=== PATIENT | male | born 1940 | race Caucasian/White ===

== ENCOUNTER → 2020-05-28 | Outpatient (CLI) | payer MEDICARE, BC ==
[~2020-05-28] MED LIST: ASPI81CH PO; Ipratropium Bro15 ML; METO25ER PO
== END | disposition home or self-care (01) ==
LOC: PLD 09:00 → LAB SHORT 09:00
DX: L82.1 Other seborrheic keratosis (principal)
CPT/HCPCS: 88305

== ENCOUNTER 2022-02-25 10:37 | Day surgery (SDC) | payer MEDICARE, BC ==
[~2022-02-25] VITALS: Ht 188 cm; Wt 92.6 kg
== END 2022-02-25 14:11 | disposition home or self-care (01) ==
LOC: ORSCSDS 10:37
PROVIDERS: Internal Medicine Gastroenterology
PROC: 0DBP8ZX Excision of Rectum, Via Natural or Artificial Opening Endoscopic, Diagnostic (ICD-10-PCS; principal; 2022-02-25 12:00)
DX: Z12.11 Encounter for screening for malignant neoplasm of colon (principal); Z86.010 Personal history of colon polyps; K62.1 Rectal polyp; K64.4 Residual hemorrhoidal skin tags; E78.5 Hyperlipidemia, unspecified; Z79.899 Other long term (current) drug therapy
CPT/HCPCS: 88305; J0330; J0461; J2405; J2704; J7120

== ENCOUNTER → 2022-03-01 | Outpatient (CLI) | payer MEDICARE, BC | LOC: LAB 08:27 → PLD 08:27 → LAB SHORT 08:27 | DX: L57.0 Actinic keratosis (principal); B88.0 Other acariasis; D48.5 Neoplasm of uncertain behavior of skin | CPT/HCPCS: 88305 ==

== ENCOUNTER → 2022-05-01 | Outpatient (CLI) | payer MEDICARE, BC ==
[2022-05-01 14:48] LABS: BASOPHILS ABSOLUTE AUTO 0.01 K/mm3 (0.00-0.23); BASOPHILS PERCENT AUTO 0 % (0-2); EOSINOPHILS ABSOLUTE AUTO 0.11 K/mm3 (0.00-0.68); EOSINOPHILS PERCENT AUTO 5 % (0-6); Hematocrit 36.1 % (37.0-53.0); Hemoglobin 12.6 g/dL (13.5-17.5); Mean Corpuscular HGB Conc 34.9 g/dL (31.5-36.5); Mean Corpuscular Volume 106 fL (80-100); Mean Platelet Volume 8.7 fL (9.1-12.4); Platelet Count 183 K/mm3 (150-400); RDW Coefficient Variation 13.5 % (11.7-14.2); RDW Standard Deviation 51.8 fL (35.1-46.3); Red Blood Cell Count 3.41 M/mm3 (4.30-5.90); White Blood Cell Count 2.35 K/mm3 (4.00-11.30)
[2022-05-01 14:57] LABS: Albumin, Blood 4.2 g/dL (3.4-5.0); Albumin/Globulin Ratio 1.4 (0.8-1.8); Bilirubin, Total 0.5 mg/dL (0.1-1.0); Bun/Creatinine Ratio 13.5 (12.0-20.0); Calcium, Blood 8.7 mg/dL (8.5-10.1); Creatinine, Blood 1.11 mg/dL (0.60-1.20); Potassium, Blood 4.7 mmol/L (3.5-5.5); Total Protein, Blood 7.2 g/dL (6.4-8.2)
[2022-05-01 15:06] LABS: IMMATURE GRAN PERCENT AUTO 0 % (0-1); LYMPHOCYTES ABSOLUTE AUTO 1.42 K/mm3 (0.84-5.20); LYMPHOCYTES PERCENT AUTO 60 % (21-46); MONOCYTES ABSOLUTE AUTO 0.08 K/mm3 (0.16-1.47); MONOCYTES PERCENT AUTO 3 % (4-13); NEUTROPHILS ABSOLUTE AUTO 0.73 K/mm3 (1.96-9.15); NEUTROPHILS PERCENT AUTO 31 % (41-73)
[2022-05-01 15:43] LABS: International Normalized Ratio 0.98; Prothrombin Time Results 10.3 Sec (9.7-11.5)
== END ==
LOC: LAB SHORT 14:43
PROVIDERS: General Practice
DX: S81.801A Unspecified open wound, right lower leg, initial encounter (principal); D53.9 Nutritional anemia, unspecified
CPT/HCPCS: 80053; 83010; 85025; 85610

== ENCOUNTER 2022-10-08 00:01 | Day surgery (SDC) | payer MEDICARE, BC ==
[2022-10-06 10:19] LABS: Hemoglobin 9.1 g/dL (13.5-17.5); Mean Corpuscular HGB 38.1 pg (26.0-34.0); Mean Corpuscular Volume 109 fL (80-100); Mean Platelet Volume 9.7 fL (9.1-12.4); Platelet Count 109 K/mm3 (150-400); RDW Coefficient Variation 13.2 % (11.7-14.2); RDW Standard Deviation 52.1 fL (35.1-46.3); Red Blood Cell Count 2.39 M/mm3 (4.30-5.90)
[2022-10-08] MEDS ORDERED: ACYCLOVIR400 MG PO (14:57)
[2022-10-08] MEDS ORDERED: Amoxicillin500 MG PO (14:57)
[2022-10-08] MEDS ORDERED: TEMOVATE15 G1 TOP (14:58)
[2022-10-08] MEDS ORDERED: Diflucan100 MG PO (14:59)
[2022-10-08] MEDS ORDERED: LEVO750 PO (14:59)
== END 2022-10-08 17:23 | disposition home or self-care (01) ==
LOC: ATC 00:01 → LAB FUT 05-01 09:05 → EDSTATUS 05-01 09:05 → ATC 05-01 09:05
PROVIDERS: Internal Medicine Hematology & Oncology
DX: D46.22 Refractory anemia with excess of blasts 2 (principal)
CPT/HCPCS: 36415; 36430; 85027; 86850; 86900; 86901; 86920; J7040; P9016

== ENCOUNTER 2022-11-10 06:28 | Day surgery (SDC) | payer MEDICARE, BC ==
[~2022-11-10] VITALS: Ht 188 cm; Wt 94.9 kg
[~2022-11-10 06:28] MED LIST changes: +ACYCLOVIR400 MG PO; +Amoxicillin500 MG PO; +Diflucan100 MG PO; +LEVO750 PO; +TEMOVATE15 G1 TOP
--- NOTE | 2022-11-10 07:28 | NUR ---
Ambulatory in [facility] warming gown applied. Surgical site prepped with 2% Chlorhexidine cloth wipe. History, Chart, Medications and Allergies reviewed before start of procedure.Lungs clear T/O to Auscultation. Patient confirms NPO status and agrees with scheduled surgery. Patient confirms NPO status and agrees with scheduled surgery. Pre-Op teaching done. Pt verbalizes understanding. Patient States Post-Procedure ride home has been arranged. Patient reports completing Chlorhexadine shower X2 prior to admission to hospital.
--- NOTE | 2022-11-10 10:12 | NUR ---
SMALL SWELLING NOTED TO R NECK BELOW INCISION, APPROX GOLF BALL SIZED IN DIAMETER AND FAIRLY FLAT. NO CHANGES IN SIZE NOTED DURING OBSERVATION OF PATIENT IN DAY SURGERY. CALL OUT TO DR RIVERO [place] PER MD TO DISCHARGE. [facility] ACC[facility]ED PER MD ORDERS. NO OTHER CONCERNS. VSS, NO C/O PAIN OR NAUSEA. TOLERATED PO FLUIDS. MEDIPORT AND SURGICAL INCISION CDI. PT DISCHARGED TO HOME IN PRIVATE VEHICLE. DISCHARGE INSTRUCTIONS GIVEN AND ALL QUESTIONS ANSWERED.
== END 2022-11-10 10:10 | disposition home or self-care (01) ==
LOC: ORSCMMR 06:28 → ORD 08:00 → ORSCMMR 10:10
PROVIDERS: Surgery
PROC: 0JH60WZ Insertion of Totally Implantable Vascular Access Device into Chest Subcutaneous Tissue and Fascia, Open Approach (ICD-10-PCS; principal; 2022-11-10 08:00)
PROC: 05HM33Z Insertion of Infusion Device into Right Internal Jugular Vein, Percutaneous Approach (ICD-10-PCS; principal; 2022-11-10 08:00)
PROC: B543ZZA Ultrasonography of Right Jugular Veins, Guidance (ICD-10-PCS; principal; 2022-11-10 08:00)
DX: D46.22 Refractory anemia with excess of blasts 2 (principal); I10 Essential (primary) hypertension; Z79.899 Other long term (current) drug therapy
CPT/HCPCS: 77001; C1788; J0690; J1642; J2250; J2704; J2795; J3010; J7120

== ENCOUNTER 2022-11-17 10:13 | Day surgery (SDC) | payer MEDICARE, BC ==
[2022-11-16 15:54] LABS: Hematocrit 20.4 % (37.0-53.0); Mean Corpuscular HGB 37.2 pg (26.0-34.0); Mean Corpuscular HGB Conc 34.3 g/dL (31.5-36.5); Mean Corpuscular Volume 109 fL (80-100); Mean Platelet Volume 9.1 fL (9.1-12.4); Platelet Count 120 K/mm3 (150-400); RDW Coefficient Variation 16.8 % (11.7-14.2); RDW Standard Deviation 66.2 fL (35.1-46.3); Red Blood Cell Count 1.88 M/mm3 (4.30-5.90); White Blood Cell Count 1.79 K/mm3 (4.00-11.30)
== END 2022-11-17 15:50 | disposition home or self-care (01) ==
LOC: ATC 10:13 → LAB FUT 11-16 11:35 → EDSTATUS 11-16 11:35
PROVIDERS: Internal Medicine Hematology & Oncology
DX: D46.22 Refractory anemia with excess of blasts 2 (principal); D70.9 Neutropenia, unspecified; E78.5 Hyperlipidemia, unspecified; Z79.899 Other long term (current) drug therapy; Z88.0 Allergy status to penicillin
CPT/HCPCS: 36415; 36430; 85027; 86850; 86900; 86901; 86923; J1642; J7040; P9016

== ENCOUNTER 2022-12-28 07:50 | Day surgery (SDC) | payer MEDICARE, BC ==
[2022-12-27 09:42] LABS: BASOPHILS PERCENT AUTO 0 % (0-2); EOSINOPHILS PERCENT AUTO 0 % (0-6); Hematocrit 18.6 % (37.0-53.0); Hemoglobin 6.4 g/dL (13.5-17.5); Mean Corpuscular HGB 38.3 pg (26.0-34.0); Mean Corpuscular HGB Conc 34.4 g/dL (31.5-36.5); Mean Corpuscular Volume 111 fL (80-100); Mean Platelet Volume 9.4 fL (9.1-12.4); Platelet Count 183 K/mm3 (150-400); RDW Coefficient Variation 23.6 % (11.7-14.2); RDW Standard Deviation 94.2 fL (35.1-46.3); Red Blood Cell Count 1.67 M/mm3 (4.30-5.90); White Blood Cell Count 1.25 K/mm3 (4.00-11.30)
[2022-12-27 09:46] LABS: IMMATURE GRAN PERCENT AUTO 0 % (0-1); LYMPHOCYTES ABSOLUTE AUTO 1.17 K/mm3 (0.84-5.20); LYMPHOCYTES PERCENT AUTO 94 % (21-46); MONOCYTES ABSOLUTE AUTO 0.04 K/mm3 (0.16-1.47); MONOCYTES PERCENT AUTO 3 % (4-13); NEUTROPHILS ABSOLUTE AUTO 0.04 K/mm3 (1.96-9.15); NEUTROPHILS PERCENT AUTO 3 % (41-73)
--- NOTE | 2022-12-28 12:16 | NUR ---
LUNG SOUNDS IN RLL ARE COARSE.
== END 2022-12-28 12:25 | disposition home or self-care (01) ==
LOC: ATC 07:50 → EDSTATUS 08:00 → ATC 12:25
PROVIDERS: Internal Medicine Hematology & Oncology
DX: D46.22 Refractory anemia with excess of blasts 2 (principal); Z79.899 Other long term (current) drug therapy; Z88.0 Allergy status to penicillin
CPT/HCPCS: 36415; 36430; 85025; 86850; 86900; 86901; 86923; J1642; J7050; P9016

== ENCOUNTER 2023-02-08 02:31 | Day surgery (SDC) | payer MEDICARE, BC ==
[2023-02-07 10:32] LABS: BASOPHILS PERCENT AUTO 0 % (0-2); EOSINOPHILS ABSOLUTE AUTO 0.01 K/mm3 (0.00-0.68); EOSINOPHILS PERCENT AUTO 1 % (0-6); Hematocrit 19.9 % (37.0-53.0); Hemoglobin 6.7 g/dL (13.5-17.5); IMMATURE GRAN ABSOLUTE AUTO 0.01 K/mm3 (0.00-0.10); IMMATURE GRAN PERCENT AUTO 1 % (0-1); LYMPHOCYTES ABSOLUTE AUTO 1.47 K/mm3 (0.84-5.20); LYMPHOCYTES PERCENT AUTO 94 % (21-46); MONOCYTES ABSOLUTE AUTO 0.07 K/mm3 (0.16-1.47); MONOCYTES PERCENT AUTO 5 % (4-13); Mean Corpuscular HGB Conc 33.7 g/dL (31.5-36.5); Mean Corpuscular Volume 107 fL (80-100); Mean Platelet Volume 10.4 fL (9.1-12.4); NEUTROPHILS ABSOLUTE AUTO 0.01 K/mm3 (1.96-9.15); NEUTROPHILS PERCENT AUTO 1 % (41-73); Platelet Count 78 K/mm3 (150-400); RDW Coefficient Variation 21.4 % (11.7-14.2); RDW Standard Deviation 81.7 fL (35.1-46.3); Red Blood Cell Count 1.86 M/mm3 (4.30-5.90); White Blood Cell Count 1.57 K/mm3 (4.00-11.30)
[2023-02-08] MEDS ORDERED: METOPROLOL TART25 MG PO (08:09)
== END 2023-02-08 11:50 | disposition home or self-care (01) ==
LOC: ATC 02:31 → LAB FUT 02-03 14:35 → EDSTATUS 02-03 14:35
PROVIDERS: Internal Medicine Hematology & Oncology
DX: D46.22 Refractory anemia with excess of blasts 2 (principal)
CPT/HCPCS: 36415; 85025; 86850; 86900; 86901; 86923; J1642; J7050; P9016

== ENCOUNTER 2023-03-22 01:32 | Day surgery (SDC) | payer MEDICARE, BC ==
[2023-03-21 09:15] LABS: BASOPHILS PERCENT AUTO 0 % (0-2); EOSINOPHILS ABSOLUTE AUTO 0.01 K/mm3 (0.00-0.68); EOSINOPHILS PERCENT AUTO 1 % (0-6); Hemoglobin 6.4 g/dL (13.5-17.5); Mean Platelet Volume 10.7 fL (9.1-12.4); Platelet Count 79 K/mm3 (150-400); White Blood Cell Count 1.38 K/mm3 (4.00-11.30)
[2023-03-21 09:23] LABS: Hematocrit 18.5 % (37.0-53.0); Mean Corpuscular HGB 35.2 pg (26.0-34.0); Mean Corpuscular HGB Conc 34.6 g/dL (31.5-36.5); Mean Corpuscular Volume 102 fL (80-100); Red Blood Cell Count 1.82 M/mm3 (4.30-5.90)
[2023-03-21 09:24] LABS: IMMATURE GRAN PERCENT AUTO 0 % (0-1); LYMPHOCYTES ABSOLUTE AUTO 1.31 K/mm3 (0.84-5.20); LYMPHOCYTES PERCENT AUTO 95 % (21-46); MONOCYTES ABSOLUTE AUTO 0.03 K/mm3 (0.16-1.47); MONOCYTES PERCENT AUTO 2 % (4-13); NEUTROPHILS ABSOLUTE AUTO 0.03 K/mm3 (1.96-9.15); NEUTROPHILS PERCENT AUTO 2 % (41-73)
[~2023-03-22 01:32] MED LIST changes: +METOPROLOL TART25 MG PO
[2023-03-22 13:28] VITALS: BP 157/55
[2023-03-22 13:46] VITALS: BP 148/66
[2023-03-22 14:46] VITALS: BP 172/73
[2023-03-22 15:22] VITALS: BP 179/61
[2023-03-22 16:24] VITALS: BP 178/60
[2023-03-22 16:47] VITALS: BP 175/67
== END 2023-03-22 16:55 | disposition home or self-care (01) ==
LOC: ATC 01:32 → EDSTATUS 02-07 16:30 → LAB FUT 02-07 16:30
PROVIDERS: Internal Medicine Hematology & Oncology
DX: D46.22 Refractory anemia with excess of blasts 2 (principal); Z88.0 Allergy status to penicillin
CPT/HCPCS: 36415; 85025; 86850; 86900; 86901; 86923; J1642; J7050; P9016

== ENCOUNTER 2023-04-19 00:23 | Day surgery (SDC) | payer MEDICARE, BC ==
[2023-04-18 09:32] LABS: BASOPHILS PERCENT AUTO 0 % (0-2); EOSINOPHILS ABSOLUTE AUTO 0.01 K/mm3 (0.00-0.68); EOSINOPHILS PERCENT AUTO 1 % (0-6); Hematocrit 19.4 % (37.0-53.0); Hemoglobin 6.6 g/dL (13.5-17.5); Mean Corpuscular Volume 100 fL (80-100); Mean Platelet Volume 9.5 fL (9.1-12.4); Platelet Count 54 K/mm3 (150-400); RDW Coefficient Variation 21.2 % (11.7-14.2); RDW Standard Deviation 75.7 fL (35.1-46.3); Red Blood Cell Count 1.94 M/mm3 (4.30-5.90); White Blood Cell Count 1.29 K/mm3 (4.00-11.30)
[2023-04-18 09:42] LABS: IMMATURE GRAN PERCENT AUTO 0 % (0-1); LYMPHOCYTES ABSOLUTE AUTO 1.22 K/mm3 (0.84-5.20); LYMPHOCYTES PERCENT AUTO 95 % (21-46); MONOCYTES ABSOLUTE AUTO 0.05 K/mm3 (0.16-1.47); MONOCYTES PERCENT AUTO 4 % (4-13); NEUTROPHILS ABSOLUTE AUTO 0.01 K/mm3 (1.96-9.15); NEUTROPHILS PERCENT AUTO 1 % (41-73)
[2023-04-18 09:57] LABS: Albumin, Blood 2.8 g/dL (3.4-5.0); Albumin/Globulin Ratio 0.8 (0.8-1.8); Bilirubin, Total 0.3 mg/dL (0.1-1.0); Bun/Creatinine Ratio 24.8 (12.0-20.0); Calcium, Blood 8.6 mg/dL (8.5-10.1); Creatinine, Blood 1.13 mg/dL (0.60-1.20); Globulin, Blood 3.4 g/dL (2.2-4.0); Potassium, Blood 4.2 mmol/L (3.5-5.5); Total Protein, Blood 6.2 g/dL (6.4-8.2)
[2023-04-18 11:37] LABS: BASOPHILS PERCENT MAN 0 % (0-2); EOSINOPHILS PERCENT MAN 0 % (0-6); LYMPHOCYTES ABSOLUTE MAN 1.26 K/mm3 (0.84-5.20); LYMPHOCYTES PERCENT MAN 98 % (21-46); MONOCYTES ABSOLUTE MAN 0.02 K/mm3 (0.16-1.47); MONOCYTES PERCENT MAN 2 % (4-13); TOTAL CELLS COUNTED 100
[2023-04-19 13:49] VITALS: BP 126/50
[2023-04-19 14:07] VITALS: BP 107/48
[2023-04-19 15:26] VITALS: BP 138/50
[2023-04-19 15:52] VITALS: BP 140/57
== END 2023-04-19 17:09 | disposition home or self-care (01) ==
LOC: ATC 00:23
PROVIDERS: Internal Medicine Hematology & Oncology
DX: D46.22 Refractory anemia with excess of blasts 2 (principal); R53.83 Other fatigue; Z88.0 Allergy status to penicillin
CPT/HCPCS: 36415; 80053; 84443; 85025; 86850; 86900; 86901; 86923; J1642; J7050; P9016

== ENCOUNTER 2023-05-18 02:09 | Day surgery (SDC) | payer MEDICARE, BC ==
[2023-05-16 09:18] LABS: Hemoglobin 6.4 g/dL (13.5-17.5); Mean Corpuscular HGB Conc 33.7 g/dL (31.5-36.5); Mean Corpuscular Volume 98 fL (80-100); Mean Platelet Volume 9.5 fL (9.1-12.4); Platelet Count 129 K/mm3 (150-400); RDW Coefficient Variation 20.4 % (11.7-14.2); RDW Standard Deviation 68.5 fL (35.1-46.3); Red Blood Cell Count 1.94 M/mm3 (4.30-5.90); White Blood Cell Count 1.77 K/mm3 (4.00-11.30)
[2023-05-16 09:41] LABS: BASOPHILS PERCENT MAN 0 % (0-2); EOSINOPHILS PERCENT MAN 0 % (0-6); LYMPHOCYTES % ATYPICAL MANUAL 4 % (0-0); LYMPHOCYTES ABSOLUTE MAN 1.66 K/mm3 (0.84-5.20); LYMPHOCYTES PERCENT MAN 90 % (21-46); MONOCYTES PERCENT MAN 6 % (4-13); TOTAL CELLS COUNTED 50
[2023-05-16 13:56] LABS: SEG NEUTROPHILS PERCENT MAN 0 % (41-73)
[2023-05-18] VITALS (7 sets, daily range): BP systolic 112–160; BP diastolic 46–60
== END 2023-05-18 16:43 | disposition home or self-care (01) ==
LOC: ATC 02:09 → EDSTATUS 13:15 → ATC 16:43
PROVIDERS: Internal Medicine Hematology & Oncology
DX: D46.22 Refractory anemia with excess of blasts 2 (principal)
CPT/HCPCS: 36415; 85025; 86850; 86900; 86901; 86923; J1642; J7050; P9016

== ENCOUNTER 2023-06-01 01:55 | Day surgery (SDC) | payer MEDICARE, BC ==
[2023-05-30 09:30] LABS: BASOPHILS PERCENT AUTO 0 % (0-2); EOSINOPHILS PERCENT AUTO 0 % (0-6); Hematocrit 19.8 % (37.0-53.0); Hemoglobin 6.8 g/dL (13.5-17.5); Mean Corpuscular HGB 32.1 pg (26.0-34.0); Mean Corpuscular HGB Conc 34.3 g/dL (31.5-36.5); Mean Corpuscular Volume 93 fL (80-100); Mean Platelet Volume 9.9 fL (9.1-12.4); Platelet Count 56 K/mm3 (150-400); RDW Coefficient Variation 17.6 % (11.7-14.2); RDW Standard Deviation 55.5 fL (35.1-46.3); Red Blood Cell Count 2.12 M/mm3 (4.30-5.90); White Blood Cell Count 1.12 K/mm3 (4.00-11.30)
[2023-05-30 09:43] LABS: IMMATURE GRAN ABSOLUTE AUTO 0.01 K/mm3 (0.00-0.10); IMMATURE GRAN PERCENT AUTO 1 % (0-1); LYMPHOCYTES ABSOLUTE AUTO 1.01 K/mm3 (0.84-5.20); LYMPHOCYTES PERCENT AUTO 90 % (21-46); MONOCYTES ABSOLUTE AUTO 0.08 K/mm3 (0.16-1.47); MONOCYTES PERCENT AUTO 7 % (4-13); NEUTROPHILS ABSOLUTE AUTO 0.02 K/mm3 (1.96-9.15); NEUTROPHILS PERCENT AUTO 2 % (41-73)
[2023-06-01 13:54] VITALS: BP 168/66
[2023-06-01 14:16] VITALS: BP 139/58
[2023-06-01 15:13] VITALS: BP 151/61
[2023-06-01 15:24] VITALS: BP 153/69
[2023-06-01 15:48] VITALS: BP 150/63
[2023-06-01 17:08] VITALS: BP 166/62
== END 2023-06-01 17:16 | disposition home or self-care (01) ==
LOC: ATC 01:55
PROVIDERS: Internal Medicine Hematology & Oncology
DX: D46.22 Refractory anemia with excess of blasts 2 (principal); E78.5 Hyperlipidemia, unspecified; Z88.0 Allergy status to penicillin; Z79.899 Other long term (current) drug therapy
CPT/HCPCS: 36415; 36430; 85025; 86850; 86900; 86901; 86923; J1642; J7050; P9016

== ENCOUNTER 2023-06-29 01:18 | Day surgery (SDC) | payer MEDICARE, BC ==
[2023-06-27 15:04] LABS: Hematocrit 18.6 % (37.0-53.0); Hemoglobin 6.6 g/dL (13.5-17.5); Mean Corpuscular HGB 32.8 pg (26.0-34.0); Mean Corpuscular HGB Conc 35.5 g/dL (31.5-36.5); Mean Corpuscular Volume 93 fL (80-100); Mean Platelet Volume 9.4 fL (9.1-12.4); Platelet Count 108 K/mm3 (150-400); RDW Coefficient Variation 16.5 % (11.7-14.2); RDW Standard Deviation 50.3 fL (35.1-46.3); Red Blood Cell Count 2.01 M/mm3 (4.30-5.90); White Blood Cell Count 1.93 K/mm3 (4.00-11.30)
[2023-06-27 16:01] LABS: BASOPHILS PERCENT MAN 0 % (0-2); EOSINOPHILS ABSOLUTE MAN 0.03 K/mm3 (0.00-0.68); EOSINOPHILS PERCENT MAN 2 % (0-6); LYMPHOCYTES ABSOLUTE MAN 1.75 K/mm3 (0.84-5.20); LYMPHOCYTES PERCENT MAN 91 % (21-46); MONOCYTES ABSOLUTE MAN 0.07 K/mm3 (0.16-1.47); MONOCYTES PERCENT MAN 4 % (4-13); NEUTROPHILS ABSOLUTE MAN 0.05 K/mm3 (1.96-9.15); SEG NEUTROPHILS PERCENT MAN 3 % (41-73); TOTAL CELLS COUNTED 100
[2023-06-29] VITALS (7 sets, daily range): BP systolic 102–161; BP diastolic 35–61
== END 2023-06-29 18:08 | disposition home or self-care (01) ==
LOC: ATC 01:18
PROVIDERS: Internal Medicine Hematology & Oncology
DX: D46.22 Refractory anemia with excess of blasts 2 (principal); Z88.0 Allergy status to penicillin
CPT/HCPCS: 36415; 36430; 85025; 86850; 86900; 86901; 86923; J1642; J7050; P9016

== ENCOUNTER 2023-08-24 02:18 | Day surgery (SDC) | payer MEDICARE, BC ==
[2023-08-22 08:45] LABS: Hematocrit 21.2 % (37.0-53.0); Hemoglobin 7.1 g/dL (13.5-17.5); Mean Corpuscular HGB Conc 33.5 g/dL (31.5-36.5); Mean Corpuscular Volume 101 fL (80-100); Mean Platelet Volume 9.4 fL (9.1-12.4); NRBC ABSOLUTE 0.02 K/mm3 (0.00-0.02); NRBC Auto 1.4 /100 WBC (0.0-0.2); Platelet Count 115 K/mm3 (150-400); RDW Coefficient Variation 22.5 % (11.7-14.2); RDW Standard Deviation 75.3 fL (35.1-46.3); Red Blood Cell Count 2.09 M/mm3 (4.30-5.90); White Blood Cell Count 1.48 K/mm3 (4.00-11.30)
[2023-08-22 09:03] LABS: BASOPHILS PERCENT MAN 0 % (0-2); EOSINOPHILS PERCENT MAN 0 % (0-6); LYMPHOCYTES ABSOLUTE MAN 1.33 K/mm3 (0.84-5.20); LYMPHOCYTES PERCENT MAN 90 % (21-46); MONOCYTES ABSOLUTE MAN 0.02 K/mm3 (0.16-1.47); MONOCYTES PERCENT MAN 2 % (4-13); NEUTROPHILS ABSOLUTE MAN 0.11 K/mm3 (1.96-9.15); SEG NEUTROPHILS PERCENT MAN 8 % (41-73); TOTAL CELLS COUNTED 50
[2023-08-24 14:58] VITALS: BP 138/51
[2023-08-24 15:17] VITALS: BP 120/44
[2023-08-24 16:42] VITALS: BP 156/70
[2023-08-24 17:03] VITALS: BP 159/61
[2023-08-24 18:04] VITALS: BP 173/66
[2023-08-24 18:25] VITALS: BP 088/66
== END 2023-08-24 18:26 | disposition home or self-care (01) ==
LOC: ATC 02:18
PROVIDERS: Internal Medicine Hematology & Oncology
DX: D46.22 Refractory anemia with excess of blasts 2 (principal)
CPT/HCPCS: 36415; 36430; 85025; 86850; 86900; 86901; 86923; J1642; J7050; P9016

== ENCOUNTER 2023-10-06 00:57 | Day surgery (SDC) | payer MEDICARE, BC ==
[2023-10-03 09:38] LABS: BASOPHILS PERCENT AUTO 0 % (0-2); EOSINOPHILS ABSOLUTE AUTO 0.02 K/mm3 (0.00-0.68); EOSINOPHILS PERCENT AUTO 2 % (0-6); Hemoglobin 6.9 g/dL (13.5-17.5); Mean Platelet Volume 10.1 fL (9.1-12.4); Platelet Count 143 K/mm3 (150-400)
[2023-10-03 09:40] LABS: Hematocrit 20.4 % (37.0-53.0); IMMATURE GRAN PERCENT AUTO 0 % (0-1); LYMPHOCYTES ABSOLUTE AUTO 1.11 K/mm3 (0.84-5.20); LYMPHOCYTES PERCENT AUTO 85 % (21-46); MONOCYTES ABSOLUTE AUTO 0.06 K/mm3 (0.16-1.47); MONOCYTES PERCENT AUTO 5 % (4-13); Mean Corpuscular HGB Conc 33.8 g/dL (31.5-36.5); Mean Corpuscular Volume 104 fL (80-100); NEUTROPHILS ABSOLUTE AUTO 0.11 K/mm3 (1.96-9.15); NEUTROPHILS PERCENT AUTO 9 % (41-73); Red Blood Cell Count 1.97 M/mm3 (4.30-5.90)
[2023-10-03 09:52] LABS: Albumin, Blood 3.2 g/dL (3.4-5.0); Albumin/Globulin Ratio 1.1 (0.8-1.8); Bilirubin, Total 0.2 mg/dL (0.1-1.0); Bun/Creatinine Ratio 21.8 (12.0-20.0); Calcium, Blood 8.6 mg/dL (8.5-10.1); Creatinine, Blood 1.01 mg/dL (0.60-1.20); Globulin, Blood 2.8 g/dL (2.2-4.0); Potassium, Blood 4.2 mmol/L (3.5-5.5)
[2023-10-06 13:43] VITALS: BP 154/53
[2023-10-06 14:04] VITALS: BP 113/47
[2023-10-06 15:17] VITALS: BP 129/54
[2023-10-06 15:34] VITALS: BP 144/51
[2023-10-06 16:48] VITALS: BP 176/64
== END 2023-10-06 16:57 | disposition home or self-care (01) ==
LOC: ATC 00:57
PROVIDERS: Internal Medicine Hematology & Oncology
DX: D46.22 Refractory anemia with excess of blasts 2 (principal); C22.0 Liver cell carcinoma; E78.5 Hyperlipidemia, unspecified; Z88.0 Allergy status to penicillin; Z79.899 Other long term (current) drug therapy
CPT/HCPCS: 36415; 36430; 80053; 82105; 85025; 86850; 86900; 86901; 86923; J1642; J7050; P9016

== ENCOUNTER 2023-11-02 02:14 | Day surgery (SDC) | payer MEDICARE ==
[2023-11-01 08:45] LABS: Mean Corpuscular HGB 33.7 pg (26.0-34.0); Mean Corpuscular HGB Conc 34.6 g/dL (31.5-36.5); Mean Corpuscular Volume 97 fL (80-100); Mean Platelet Volume 9.9 fL (9.1-12.4); RDW Coefficient Variation 22.8 % (11.7-14.2); Red Blood Cell Count 1.84 M/mm3 (4.30-5.90); White Blood Cell Count 1.46 K/mm3 (4.00-11.30)
[2023-11-01 08:46] LABS: Hematocrit 17.9 % (37.0-53.0)
[2023-11-01 11:07] LABS: Hemoglobin 6.2 g/dL (13.5-17.5); Platelet Count 105 K/mm3 (150-400)
[2023-11-01 11:13] LABS: BASOPHILS PERCENT MAN 0 % (0-2); EOSINOPHILS PERCENT MAN 0 % (0-6); LYMPHOCYTES % ATYPICAL MANUAL 24 % (0-0); LYMPHOCYTES ABSOLUTE MAN 1.37 K/mm3 (0.84-5.20); LYMPHOCYTES PERCENT MAN 70 % (21-46); MONOCYTES ABSOLUTE MAN 0.02 K/mm3 (0.16-1.47); MONOCYTES PERCENT MAN 2 % (4-13); NEUTROPHILS ABSOLUTE MAN 0.05 K/mm3 (1.96-9.15); SEG NEUTROPHILS PERCENT MAN 4 % (41-73); TOTAL CELLS COUNTED 50
[2023-11-02 13:40] VITALS: BP 167/79
[2023-11-02 13:58] VITALS: BP 151/51
[2023-11-02 14:59] VITALS: BP 166/64
[2023-11-02 15:20] VITALS: BP 154/54
[2023-11-02 15:44] VITALS: BP 142/55; BP 152/55
[2023-11-02 16:54] VITALS: BP 159/71
== END 2023-11-02 17:01 | disposition home or self-care (01) ==
LOC: ATC 02:14
PROVIDERS: Internal Medicine Hematology & Oncology
DX: D46.22 Refractory anemia with excess of blasts 2 (principal); E78.5 Hyperlipidemia, unspecified
CPT/HCPCS: 36415; 36430; 85025; 86850; 86900; 86901; 86923; J1642; J7050; P9016

== ENCOUNTER 2023-11-30 02:41 | Day surgery (SDC) | payer MEDICARE ==
[2023-11-28 09:39] LABS: Mean Corpuscular HGB 31.3 pg (26.0-34.0); Mean Corpuscular HGB Conc 33.7 g/dL (31.5-36.5); Mean Corpuscular Volume 93 fL (80-100); Mean Platelet Volume 10.3 fL (9.1-12.4); Platelet Count 89 K/mm3 (150-400); RDW Coefficient Variation 19.9 % (11.7-14.2); RDW Standard Deviation 66.3 fL (35.1-46.3); Red Blood Cell Count 1.76 M/mm3 (4.30-5.90); White Blood Cell Count 1.22 K/mm3 (4.00-11.30)
[2023-11-28 09:49] LABS: Hemoglobin 5.5 g/dL (13.5-17.5)
[2023-11-28 09:50] LABS: Hematocrit 16.3 % (37.0-53.0)
[2023-11-28 11:01] LABS: BASOPHILS PERCENT MAN 0 % (0-2); EOSINOPHILS PERCENT MAN 0 % (0-6); LYMPHOCYTES ABSOLUTE MAN 1.19 K/mm3 (0.84-5.20); LYMPHOCYTES PERCENT MAN 98 % (21-46); MONOCYTES PERCENT MAN 0 % (4-13); NEUTROPHILS ABSOLUTE MAN 0.02 K/mm3 (1.96-9.15); SEG NEUTROPHILS PERCENT MAN 2 % (41-73); TOTAL CELLS COUNTED 50
[2023-11-30 13:55] VITALS: BP 145/36
[2023-11-30 14:12] VITALS: BP 114/46
[2023-11-30 15:27] VITALS: BP 144/58
[2023-11-30 15:46] VITALS: BP 139/57
[2023-11-30 16:58] VITALS: BP 170/63
[2023-11-30 17:00] VITALS: BP 160/60
== END 2023-11-30 17:06 | disposition home or self-care (01) ==
LOC: ATC 02:41
PROVIDERS: Internal Medicine Hematology & Oncology
DX: D46.22 Refractory anemia with excess of blasts 2 (principal)
CPT/HCPCS: 36415; 36430; 85025; 86850; 86900; 86901; 86923; J1642; J7050; P9016

== ENCOUNTER 2023-12-14 | Day surgery (SDC) | payer MEDICARE ==
[2023-12-12 08:36] LABS: Hematocrit 19.9 % (37.0-53.0); Hemoglobin 6.9 g/dL (13.5-17.5); Mean Corpuscular HGB 32.4 pg (26.0-34.0); Mean Corpuscular HGB Conc 34.7 g/dL (31.5-36.5); Mean Corpuscular Volume 93 fL (80-100); Mean Platelet Volume 9.8 fL (9.1-12.4); Platelet Count 92 K/mm3 (150-400); RDW Coefficient Variation 17.5 % (11.7-14.2); RDW Standard Deviation 59.7 fL (35.1-46.3); Red Blood Cell Count 2.13 M/mm3 (4.30-5.90); White Blood Cell Count 1.57 K/mm3 (4.00-11.30)
[2023-12-12 09:03] LABS: BASOPHILS PERCENT MAN 0 % (0-2); EOSINOPHILS PERCENT MAN 0 % (0-6); LYMPHOCYTES ABSOLUTE MAN 1.41 K/mm3 (0.84-5.20); LYMPHOCYTES PERCENT MAN 90 % (21-46); MONOCYTES ABSOLUTE MAN 0.09 K/mm3 (0.16-1.47); MONOCYTES PERCENT MAN 6 % (4-13); NEUTROPHILS ABSOLUTE MAN 0.06 K/mm3 (1.96-9.15); SEG NEUTROPHILS PERCENT MAN 4 % (41-73); TOTAL CELLS COUNTED 50
[2023-12-14] VITALS (7 sets, daily range): BP systolic 100–159; BP diastolic 42–76
[2023-12-14] MEDS ORDERED: NS 250 ML IV SCH (06:50)
== END 2023-12-14 11:14 | disposition home or self-care (01) ==
LOC: ATC → EDSTATUS 07:30 → ATC 11:14
PROVIDERS: Internal Medicine Hematology & Oncology
DX: D46.22 Refractory anemia with excess of blasts 2 (principal); E78.5 Hyperlipidemia, unspecified; Z88.0 Allergy status to penicillin; Z79.899 Other long term (current) drug therapy
CPT/HCPCS: 36415; 36430; 85025; 86850; 86900; 86901; 86923; J1642; J7050; P9016

== ENCOUNTER 2024-02-09 02:15 | Day surgery (SDC) | payer MEDICARE ==
[2024-02-06 08:24] LABS: Hematocrit 19.2 % (37.0-53.0); Hemoglobin 6.5 g/dL (13.5-17.5); Mean Corpuscular HGB Conc 33.9 g/dL (31.5-36.5); Mean Corpuscular Volume 89 fL (80-100); RDW Coefficient Variation 15.7 % (11.7-14.2); RDW Standard Deviation 50.2 fL (35.1-46.3); Red Blood Cell Count 2.17 M/mm3 (4.30-5.90)
[2024-02-06 08:35] LABS: Platelet Count 37 K/mm3 (150-400)
[2024-02-06 09:01] LABS: BASOPHILS PERCENT MAN 0 % (0-2); EOSINOPHILS PERCENT MAN 0 % (0-6); LYMPHOCYTES ABSOLUTE MAN 2.19 K/mm3 (0.84-5.20); LYMPHOCYTES PERCENT MAN 73 % (21-46); MONOCYTES ABSOLUTE MAN 0.12 K/mm3 (0.16-1.47); MONOCYTES PERCENT MAN 4 % (4-13); NEUTROPHILS ABSOLUTE MAN 0.66 K/mm3 (1.96-9.15); OTHER CELL PERCENT MAN 1 % (0-0); SEG NEUTROPHILS PERCENT MAN 22 % (41-73); TOTAL CELLS COUNTED 100
[2024-02-09] MEDS ORDERED: NS 250 ML IV SCH (06:40)
[2024-02-09 07:49] VITALS: BP 133/47
[2024-02-09 08:04] VITALS: BP 132/43
[2024-02-09 09:18] VITALS: BP 138/60
[2024-02-09 09:46] VITALS: BP 128/46
[2024-02-09 10:47] VITALS: BP 143/76
[2024-02-09 11:17] VITALS: BP 151/57
== END 2024-02-09 11:22 | disposition home or self-care (01) ==
LOC: ATC 02:15
PROVIDERS: Internal Medicine Hematology & Oncology
DX: D46.22 Refractory anemia with excess of blasts 2 (principal); Z88.0 Allergy status to penicillin; Z79.899 Other long term (current) drug therapy; Z79.890 Hormone replacement therapy
CPT/HCPCS: 36415; 36430; 85025; 86850; 86900; 86901; 86923; J1642; J7050; P9016

== ENCOUNTER 2024-02-21 01:20 | Day surgery (SDC) | payer MEDICARE ==
[2024-02-20 09:43] LABS: Hematocrit 22.4 % (37.0-53.0); Hemoglobin 7.7 g/dL (13.5-17.5); Mean Corpuscular HGB 30.7 pg (26.0-34.0); Mean Corpuscular HGB Conc 34.4 g/dL (31.5-36.5); Mean Corpuscular Volume 89 fL (80-100); RDW Coefficient Variation 14.2 % (11.7-14.2); RDW Standard Deviation 46.4 fL (35.1-46.3); Red Blood Cell Count 2.51 M/mm3 (4.30-5.90); White Blood Cell Count 1.91 K/mm3 (4.00-11.30)
[2024-02-20 09:47] LABS: Platelet Count 5 K/mm3 (150-400)
[2024-02-20 10:09] LABS: BASOPHILS PERCENT MAN 0 % (0-2); EOSINOPHILS PERCENT MAN 0 % (0-6); LYMPHOCYTES ABSOLUTE MAN 1.75 K/mm3 (0.84-5.20); LYMPHOCYTES PERCENT MAN 92 % (21-46); MONOCYTES ABSOLUTE MAN 0.11 K/mm3 (0.16-1.47); MONOCYTES PERCENT MAN 6 % (4-13); NEUTROPHILS ABSOLUTE MAN 0.03 K/mm3 (1.96-9.15); SEG NEUTROPHILS PERCENT MAN 2 % (41-73); TOTAL CELLS COUNTED 50
[2024-02-21] VITALS (7 sets, daily range): BP systolic 109–152; BP diastolic 49–94
[2024-02-21] MEDS ORDERED: NS 250 ML IV SCH (07:25)
== END 2024-02-21 11:30 | disposition home or self-care (01) ==
LOC: ATC 01:20 → EDSTATUS 07:30 → ATC 07:30
PROVIDERS: Internal Medicine Hematology & Oncology
DX: D46.22 Refractory anemia with excess of blasts 2 (principal); Z79.899 Other long term (current) drug therapy; Z88.0 Allergy status to penicillin
CPT/HCPCS: 36415; 36430; 85025; 86850; 86900; 86901; 86923; J1642; J7050; P9016; P9035

== ENCOUNTER 2024-02-28 02:30 | Day surgery (SDC) | payer MEDICARE ==
[2024-02-27 09:37] LABS: Hematocrit 20.5 % (37.0-53.0); Hemoglobin 7.1 g/dL (13.5-17.5); Mean Corpuscular HGB 29.8 pg (26.0-34.0); Mean Corpuscular HGB Conc 34.6 g/dL (31.5-36.5); Mean Corpuscular Volume 86 fL (80-100); Mean Platelet Volume 12.4 fL (9.1-12.4); RDW Coefficient Variation 13.4 % (11.7-14.2); RDW Standard Deviation 42.4 fL (35.1-46.3); Red Blood Cell Count 2.38 M/mm3 (4.30-5.90)
[2024-02-27 09:40] LABS: Platelet Count 12 K/mm3 (150-400); White Blood Cell Count 0.78 K/mm3 (4.00-11.30)
[2024-02-27 10:26] LABS: BASOPHILS PERCENT MAN 0 % (0-2); EOSINOPHILS PERCENT MAN 0 % (0-6); LYMPHOCYTES ABSOLUTE MAN 0.71 K/mm3 (0.84-5.20); LYMPHOCYTES PERCENT MAN 92 % (21-46); MONOCYTES ABSOLUTE MAN 0.03 K/mm3 (0.16-1.47); MONOCYTES PERCENT MAN 4 % (4-13); NEUTROPHILS ABSOLUTE MAN 0.03 K/mm3 (1.96-9.15); SEG NEUTROPHILS PERCENT MAN 4 % (41-73); TOTAL CELLS COUNTED 25
[2024-02-28] MEDS ORDERED: NS 250 ML IV SCH (07:00)
[2024-02-28 07:43] VITALS: BP 154/56
[2024-02-28 08:00] VITALS: BP 108/44
[2024-02-28 08:54] VITALS: BP 125/42
[2024-02-28 09:20] VITALS: BP 125/53
[2024-02-28 10:21] VITALS: BP 134/49
== END 2024-02-28 10:35 | disposition home or self-care (01) ==
LOC: ATC 02:30 → EDSTATUS 07:30 → ATC 07:30
PROVIDERS: Internal Medicine Hematology & Oncology
DX: D46.22 Refractory anemia with excess of blasts 2 (principal)
CPT/HCPCS: 36415; 36430; 85025; 86850; 86900; 86901; 86923; J1642; J7050; P9016; P9035

== ENCOUNTER 2024-03-07 04:37 | Day surgery (SDC) | payer MEDICARE ==
[2024-03-05 10:16] LABS: Hematocrit 19.1 % (37.0-53.0); Hemoglobin 6.6 g/dL (13.5-17.5); Mean Corpuscular HGB 30.3 pg (26.0-34.0); Mean Corpuscular HGB Conc 34.6 g/dL (31.5-36.5); Mean Corpuscular Volume 88 fL (80-100); Mean Platelet Volume 11.9 fL (9.1-12.4); RDW Coefficient Variation 13.3 % (11.7-14.2); RDW Standard Deviation 42.4 fL (35.1-46.3); Red Blood Cell Count 2.18 M/mm3 (4.30-5.90)
[2024-03-05 10:41] LABS: BASOPHILS PERCENT AUTO 0 % (0-2); EOSINOPHILS PERCENT AUTO 0 % (0-6); IMMATURE GRAN PERCENT AUTO 0 % (0-1); LYMPHOCYTES ABSOLUTE AUTO 0.58 K/mm3 (0.84-5.20); LYMPHOCYTES PERCENT AUTO 81 % (21-46); MONOCYTES ABSOLUTE AUTO 0.07 K/mm3 (0.16-1.47); MONOCYTES PERCENT AUTO 10 % (4-13); NEUTROPHILS ABSOLUTE AUTO 0.07 K/mm3 (1.96-9.15); NEUTROPHILS PERCENT AUTO 10 % (41-73); Platelet Count 23 K/mm3 (150-400); White Blood Cell Count 0.72 K/mm3 (4.00-11.30)
[2024-03-07] MEDS ORDERED: NS 250 ML IV SCH (07:30)
[2024-03-07 13:40] VITALS: BP 161/50
[2024-03-07 13:59] VITALS: BP 119/44
[2024-03-07 15:00] VITALS: BP 135/46
[2024-03-07 15:20] VITALS: BP 126/52
== END 2024-03-07 15:30 | disposition home or self-care (01) ==
LOC: ATC 04:37
PROVIDERS: Internal Medicine Hematology & Oncology
DX: D46.22 Refractory anemia with excess of blasts 2 (principal)
CPT/HCPCS: 36415; 36430; 85025; 86850; 86900; 86901; 86923; J1642; J7050; P9016

== ENCOUNTER 2024-04-17 05:21 | Day surgery (SDC) | payer MEDICARE ==
[2024-04-16 09:41] LABS: Hematocrit 22.4 % (37.0-53.0); Hemoglobin 7.5 g/dL (13.5-17.5); Mean Corpuscular HGB 29.4 pg (26.0-34.0); Mean Corpuscular HGB Conc 33.5 g/dL (31.5-36.5); Mean Corpuscular Volume 88 fL (80-100); Mean Platelet Volume 11.9 fL (9.1-12.4); RDW Coefficient Variation 13.8 % (11.7-14.2); RDW Standard Deviation 43.7 fL (35.1-46.3); Red Blood Cell Count 2.55 M/mm3 (4.30-5.90); White Blood Cell Count 4.43 K/mm3 (4.00-11.30)
[2024-04-16 09:44] LABS: Platelet Count 16 K/mm3 (150-400)
[2024-04-16 10:42] LABS: BAND PERCENT MAN 1 % (0-8); BASOPHILS PERCENT MAN 0 % (0-2); BLASTS PERCENT MAN 2 % (0-0); EOSINOPHILS PERCENT MAN 0 % (0-6); LYMPHOCYTES ABSOLUTE MAN 2.39 K/mm3 (0.84-5.20); LYMPHOCYTES PERCENT MAN 54 % (21-46); METAMYELOCYTE ABSOLUTE MAN 0.08 K/mm3 (0.00-0.00); METAMYELOCYTE PERCENT MAN 2 % (0-0); MONOCYTES ABSOLUTE MAN 1.59 K/mm3 (0.16-1.47); MONOCYTES PERCENT MAN 36 % (4-13); MYELOCYTE ABSOLUTE MAN 0.08 K/mm3 (0.00-0.00); MYELOCYTE PERCENT MAN 2 % (0-0); NEUTROPHILS ABSOLUTE MAN 0.13 K/mm3 (1.96-9.15); PROMYELOCYTE ABSOLUTE MAN 0.04 K/mm3 (0.00-0.00); PROMYELOCYTE PERCENT MAN 1 % (0-0); SEG NEUTROPHILS PERCENT MAN 2 % (41-73); TOTAL CELLS COUNTED 100
[2024-04-17] MEDS ORDERED: NS 250 ML IV SCH (07:00)
[2024-04-17 13:46] VITALS: BP 113/58
[2024-04-17 14:03] VITALS: BP 106/45
[2024-04-17 15:03] VITALS: BP 117/48
[2024-04-17 15:40] VITALS: BP 116/42
[2024-04-17 15:58] VITALS: BP 123/99
[2024-04-17 17:17] VITALS: BP 133/59
== END 2024-04-17 17:25 | disposition home or self-care (01) ==
LOC: ATC 05:21
PROVIDERS: Internal Medicine Hematology & Oncology
DX: D46.22 Refractory anemia with excess of blasts 2 (principal); Z88.0 Allergy status to penicillin
CPT/HCPCS: 36415; 36430; 85025; 86850; 86900; 86901; 86922; J1642; J7050; P9016

== ENCOUNTER 2024-04-26 11:12 | Inpatient (IN) | payer MEDICARE ==
[~2024-04-26] VITALS: Ht 188 cm; Wt 81.7 kg
[2024-04-26] VITALS (7 sets, daily range): BP systolic 116–156; BP diastolic 46–84
[2024-04-26 11:41] LABS: Hematocrit 22.4 % (37.0-53.0); Hemoglobin 7.6 g/dL (13.5-17.5); Mean Corpuscular HGB 29.5 pg (26.0-34.0); Mean Corpuscular HGB Conc 33.9 g/dL (31.5-36.5); Mean Corpuscular Volume 87 fL (80-100); Mean Platelet Volume 11.1 fL (9.1-12.4); RDW Coefficient Variation 13.8 % (11.7-14.2); RDW Standard Deviation 43.5 fL (35.1-46.3); Red Blood Cell Count 2.58 M/mm3 (4.30-5.90); White Blood Cell Count 1.27 K/mm3 (4.00-11.30)
[2024-04-26 11:46] LABS: Platelet Count 19 K/mm3 (150-400)
[2024-04-26 12:02] LABS: Albumin, Blood 2.3 g/dL (3.4-5.0); Bilirubin, Total 0.8 mg/dL (0.1-1.0); Bun/Creatinine Ratio 44.5 (12.0-20.0); Calcium, Blood 7.9 mg/dL (8.5-10.1); Creatinine, Blood 0.97 mg/dL (0.60-1.20); Globulin, Blood 2.3 g/dL (2.2-4.0); Potassium, Blood 4.4 mmol/L (3.5-5.5); Total Protein, Blood 4.6 g/dL (6.4-8.2)
[2024-04-26 12:18] LABS: BASOPHILS PERCENT MAN 0 % (0-2); BLASTS PERCENT MAN 2 % (0-0); EOSINOPHILS PERCENT MAN 0 % (0-6); LYMPHOCYTES % ATYPICAL MANUAL 4 % (0-0); LYMPHOCYTES ABSOLUTE MAN 0.78 K/mm3 (0.84-5.20); LYMPHOCYTES PERCENT MAN 58 % (21-46); MONOCYTES PERCENT MAN 32 % (4-13); NEUTROPHILS ABSOLUTE MAN 0.05 K/mm3 (1.96-9.15); SEG NEUTROPHILS PERCENT MAN 4 % (41-73); TOTAL CELLS COUNTED 50
[2024-04-26] MEDS ORDERED: LEVOFLOXACIN750 MG PO (12:31)
[2024-04-26] MEDS ORDERED: CefTRIAXone Sodium 1,000 MG in NS 50 ML IV ONE (16:05)
[2024-04-26] MEDS ORDERED: Cefepime HCl 2,000 MG in NS 100 ML IV SCH (16:59)
[2024-04-26] MEDS ORDERED: Ondansetron 4 MG SoluTab MM PRN (17:00)
[2024-04-26] MEDS ORDERED: Acetaminophen 325 MG TABLET PO PRN (17:05)
[2024-04-26] MEDS ORDERED: LORazepam 0.5 MG Tab PO PRN (17:05)
[2024-04-26] MEDS ORDERED: OxyCODONE HCL 5 MG TAB PO PRN (17:15)
--- NOTE | 2024-04-26 18:32 | NUR ---
TRANSFER NOTE/SHIFT SUMMARY PATIENT TRANSFERRED TO ROOM 348 AT 1757. PATIENT DENIES PAIN. A/OX4. REQUESTING ROBLES BE PLACED AT THIS TIME. ORDER FOR BLOOD TRANSFUSION REVIEWED. ADMISSION QUESTIONS COMPLETED. IV ABX BEING INFUSED CURRENTLY. PATIENT DFENIES SOB OR COUGH. NO OTHER CONCERNS AT THIS TIME.
--- NOTE | 2024-04-26 18:45 | NUR ---
REVIEWED AND AGREE WITH ALL ASSESSMENTS AND NOTES OF MARIA M POWELL.
[2024-04-26] MEDS ORDERED: NS 250 ML IV PRN (20:05)
[2024-04-26] MEDS ORDERED: Metoprolol Tartrate 25 MG Tab PO SCH (21:00)
[2024-04-26] MEDS ORDERED: Acyclovir 400 MG Tab PO SCH (21:00)
[2024-04-27] VITALS (8 sets, daily range): BP systolic 121–162; BP diastolic 48–70
--- NOTE | 2024-04-27 02:30 | NUR ---
TRANSFUSION: TEMP AT START OF FIRST UNIT OF BLOOD WAS 99.7, EMR ANALYST PA WAS MADE AWARE WHEN CONSENT WAS OBTAINED. ORDER TO START TRANSFUSION WITH LOW GRADE TEMP. AND CONTINUE TO MONITOR. TRANSFUSION REACT EDUCATION WAS GIVEN, PATIENT VERBALIZED UNDERSTANDING. FIRST UNIT COMPLETED WITHOUT DIFFICULTY OR S/S OF REACTION. SECOND UNIT IS STARTED WITH TEMP. AT 99.6.
[2024-04-27 06:31] LABS: Hematocrit 26.9 % (37.0-53.0); Hemoglobin 9.2 g/dL (13.5-17.5); Mean Corpuscular HGB 29.9 pg (26.0-34.0); Mean Corpuscular HGB Conc 34.2 g/dL (31.5-36.5); Mean Corpuscular Volume 87 fL (80-100); Mean Platelet Volume 11.9 fL (9.1-12.4); RDW Coefficient Variation 13.8 % (11.7-14.2); RDW Standard Deviation 43.7 fL (35.1-46.3); Red Blood Cell Count 3.08 M/mm3 (4.30-5.90); White Blood Cell Count 1.45 K/mm3 (4.00-11.30)
[2024-04-27 06:50] LABS: Albumin, Blood 2.1 g/dL (3.4-5.0); Anion Gap 10 mmol/L (3-11); Blood Urea Nitrogen 39 mg/dL (8-24); Bun/Creatinine Ratio 44.4 (12.0-20.0); CO2, Blood 23 mmol/L (21-32); Calcium, Blood 7.8 mg/dL (8.5-10.1); Chloride, Blood 107 mmol/L (98-108); Creatinine, Blood 0.88 mg/dL (0.60-1.20); Glomerular Filtration Rate 85 (60-); Glucose, Blood 126 mg/dL (70-99); Magnesium, Blood 1.5 mg/dL (1.6-2.4); Phosphorus, Blood 3.3 mg/dL (2.5-4.9); Potassium, Blood 4.4 mmol/L (3.5-5.5); Sodium, Blood 136 mmol/L (136-145)
[2024-04-27 06:57] LABS: Platelet Count 16 K/mm3 (150-400)
--- NOTE | 2024-04-27 07:18 | NUR ---
PATIENT TOLERATED TRANSFUSION OF 2 UNITS PRBC WELL AND IS ABLE TO AMBULATE TO THE BATHROOM WITH LIMITED ASSIST AND REPORTS NO DIZZINES. PLATELETS THIS AM ARE CRITICAL AT 16. RESULT WAS CALLED TO DR JENSEN, NO NEW ORDERS AT THIS TIME.
[2024-04-27 07:35] LABS: BASOPHILS PERCENT MAN 0 % (0-2); BLASTS PERCENT MAN 2 % (0-0); EOSINOPHILS PERCENT MAN 0 % (0-6); LYMPHOCYTES ABSOLUTE MAN 1.01 K/mm3 (0.84-5.20); LYMPHOCYTES PERCENT MAN 70 % (21-46); MONOCYTES PERCENT MAN 14 % (4-13); SEG NEUTROPHILS PERCENT MAN 14 % (41-73); TOTAL CELLS COUNTED 50
[2024-04-27] MEDS ORDERED: LevoFLOXacin 750 MG Tab PO SCH (09:00)
[2024-04-27] MEDS ORDERED: Metoprolol Tartrate 25 MG Tab PO SCH (09:00)
[2024-04-27] MEDS ORDERED: Magnesium Oxide 400 MG Tab PO SCH (09:00)
[2024-04-27] MEDS ORDERED: Fluconazole 100 MG Tab PO SCH (09:00)
--- NOTE | 2024-04-27 16:46 | NUR ---
SHIFT SUMMARY PATIENT A/OX4, PLEASANT AND COOPERATIVE WITH STAFF MEMBERS. PATIENT COMPLAINED OF TOOTH PAIN AND A SORE THROAT TODAY AND WAS ADMINISTERED TYLENOL. PATIENT'S AND DAUGHTER VISITED THIS SHIFT. PATIENT ALSO HAD A SHOE REPAIRER FROM [facility] ASSESS HIM TODAY. DE-ACCESSED MEDIPORT NOTED TO CHEST. WOUND TO RIGHT GROIN CLEAN, DRY AND OPEN TO AIR. NO OTHER CONCERNS AT THIS TIME.
--- NOTE | 2024-04-27 17:00 | NUR ---
REVIEWED AND AGREE WITH ALL NOTES AND ASSESSMENTS BY MARIA M POWELL.
[2024-04-28 02:36] VITALS: BP 136/67
--- NOTE | 2024-04-28 06:26 | NUR ---
BUYING INTERN SUMMARY PT A/OX4. PLEASANT AND COOPERATIVE. PT C/O OF TOOTH PAIN AND SORE THROAT T/O THE NIGHT. MED PER DEC. PT ABLE TO MAKE NEEDS KNOWN. USES CALL LIGHT APPRROPRIATELY FOR NEEDS AND SBA TO BATHROOM. CALL LIGHT ACCESSIBLE.
[2024-04-28 07:16] VITALS: BP 130/55
[2024-04-28 15:26] VITALS: BP 156/60
[2024-04-28 19:41] VITALS: BP 116/66
[2024-04-28] MEDS ORDERED: Prochlorperazine Edisylate 10 mg Vial IV PRN (21:35)
[2024-04-29 03:30] VITALS: BP 107/71
--- NOTE | 2024-04-29 05:31 | NUR ---
MACHINE TECHNICIAN SUMMARY PT IS A/OX4. PLEASANT AND COOPERATIVE. BRIEF EPISODE OF NAUSEA WITH DRY HEAVE-CALL TO FISH PITCHER/DR RO; NEW ORDER FOR COMPAZINE IV PRN. GAVE PT SPRITE AND PT STATED FEELING HAD PASSED. EDUCATED PT ON NEW MEDICATION AND NEED TO REPORT FEELING OF NAUSEA. PT STATED HE FLET NAUSEAS AFTER GETTING UP TO THE BATHROOM. PT TALKING FREQUENTLY OF UPCOMING TRANSFER TO [facility] AND HIS TERMINAL CONDITION. PT SEEMS TO BE HANDLING WELL AND STAYING POSITIVE. PT ABLE TO MAKE NEEDS KNOWN. CALL LIGHT IN REACH. PT CONTINUES TO COMPLAIN OF RIGHT TOOTH PAIN--MED PER DEC.
[2024-04-29 07:17] VITALS: BP 129/66
[2024-04-29] MEDS ORDERED: Polyethylene Glycol 3350 17 gm PO PRN (11:30)
[2024-04-29] MEDS ORDERED: Morphine Sulfate 20 MG/1ML 1 ML Oral Syringe PO PRN (12:55)
--- NOTE | 2024-04-29 15:48 | NUR ---
Pt remains able to make his wants and needs known. He states he still has some nausea but declines to take medication for this. His appetite remains fair. He is able to request pain medication, states his tooth pain is worse at night. Denies pain at this time.
[2024-04-29 16:12] VITALS: BP 151/60
--- NOTE | 2024-04-29 17:20 | NUR ---
SHIFT SUMMARY PATIENT HAVING EPISODES OF NAUSEA AND SMALL AMOUNTS OF EMESIS THIS SHIFT, DECLINING MEDICATIONS. C/O TOOTH PAIN, APAP GIVEN. HARD SCRIPTS FOR DISCHARGE PLACED IN FRONT OF CHART. ABLE TO AMBULATE TO BATHROOM WELL. TOLERATING IV ABX. CALL LIGHT IN REACH, ABLE TO MAKE NEEDS KNOWN. CARES ONGOING.
[2024-04-29 19:49] VITALS: BP 154/76
[2024-04-30 02:34] VITALS: BP 124/56
--- NOTE | 2024-04-30 05:44 | NUR ---
ROUTING EQUIPMENT TENDER SUMMARY PT A/OX4. NO ACUTE CHANGES. PT PLEASANT AND COOPERATIVE. PT REPORTS INCREASED EPISODE OF NAUSEA. TOOTH PAIN HAS BEEN MILE TO NONE; PT HAS DENIED NEED FOR PAIN RELIEVER WHEN ASSESSED. MED W/PRN COMPAZINE 1X WITH GOOD EFFECT. PT ABLE TO MAKE NEEDS AND CALL APPROPRIATELY. CALL LIGHT ACCESSIBLE.
[2024-04-30 07:16] VITALS: BP 133/64
[2024-04-30] MEDS ORDERED: Docusate Sodium 100 MG Cap PO SCH (09:00)
[2024-04-30 10:34] VITALS: BP 120/55
[2024-04-30 14:53] VITALS: BP 177/72
--- NOTE | 2024-04-30 19:35 | NUR ---
SHIFT SUMMARY- PT ALERT AND ORIENTED. 1PA WITH TRANSFERS. NEW ORDER FOR NO IV ACCESS. IV DC'D AT THE REQUEST OF DR SANABRIA. PLAN IS FOR PT TO DC HOME ON HOSPICE AND THEN ADMIT TO [facility]. PT IN BED, CALL LIGHT IN REACH NO S&S OF DISTRESS NOTED.
[2024-04-30 19:48] VITALS: BP 152/81
[2024-05-01 03:16] VITALS: BP 171/89
--- NOTE | 2024-05-01 06:25 | NUR ---
SHIFT SUMMARY PATIENT PRESENTED A POLITE AND UPBEAT DEMEANOR, OFTEN JOKING WITH STAFF. HE TOLERATED SHIFT ASSESSMENTWITH NO COMPLAINTS. PATIENT ADVISED NURSE THAT HE WAS STARTING TO FEEL TOOTH PAIN COMING ON AND ASKED FOR TYLENOL, BUT CHANGED HIS MIND WHEN NURSE CAME BACK TO ADMINISTER. 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 HE ASKED STAFF TO PLEASE WAKE HIM AT 0530 SO THAT HE CAN MODIFY HIS BREAKFAST HE WAS WANTING SOME HASHBROWNS AND A BLUEBERRY MUFFIN. HE APPEARED TO SLEEP THROUGH THE NIGHT WITHOUT ISSUE AND WAS ABLE AMBULATE TO THE TOILET TWICE DURING THE NIGHT. CALL LIGHT PUT WITHIN REACH AND BED IN LOW POSITION.
[2024-05-01 07:37] VITALS: BP 109/67
[2024-05-01] MEDS ORDERED: Lidocaine 2% Jelly Uro-Jet UR ONE (10:15)
[2024-05-01] MEDS ORDERED: ACET325 PO (12:47)
[2024-05-01] MEDS ORDERED: Ativan1 MG PO (12:49)
[2024-05-01] MEDS ORDERED: MORP20L PO (12:49)
[2024-05-01] MEDS ORDERED: OXYC5 PO (12:50)
--- NOTE | 2024-05-01 15:09 | NUR ---
PATIENT D/C'D HOME WITH FAMILY ON HOSPICE. DC INSTRUCTIONS AND EDUCATION DISCUSSED WITH PATIENT AND COPY PROVIDED. HARD SCRIPTS FOR ROXANOL, OXYCODONE AND ATIVAN SENT WITH DC PACKET. PATIENT AND FAMILY DENIES ANY FURTHER QUESTIONS OR CONCERNS. DR SANABRIA PLACED ROBLES CATH AND PATIENT D/C'D WITH IT.
== END 2024-05-01 15:07 | disposition hospice, home (50) | DRG 808 ==
LOC: ER 11:12 → MEDS 16:49
PROVIDERS: Emergency Medicine; ADMIT Family Medicine
PROC: 30233N1 Transfusion of Nonautologous Red Blood Cells into Peripheral Vein, Percutaneous Approach (ICD-10-PCS; principal; 2024-04-26)
DX: D61.818 Other pancytopenia (principal); J18.9 Pneumonia, unspecified organism; Z51.5 Encounter for palliative care; Z66 Do not resuscitate; D46.9 Myelodysplastic syndrome, unspecified; R63.0 Anorexia; R91.8 Other nonspecific abnormal finding of lung field; Z85.46 Personal history of malignant neoplasm of prostate; Z88.0 Allergy status to penicillin; Z91.040 Latex allergy status; Z79.899 Other long term (current) drug therapy; Z79.2 Long term (current) use of antibiotics; Z68.23 Body mass index [BMI] 23.0-23.9, adult
CPT/HCPCS: 36415; 36430; 71046; 80053; 80069; 83605; 83735; 85025; 86850; 86900; 86901; 86922; 87040; 93005; 93010; 99285-25; A9270; J0692; J0696; J0780; P9016